=== PATIENT | female | born 1960 | race Caucasian/White ===

== ENCOUNTER 2019-12-26 13:52 | Outpatient (CLI) | payer OTHER, SELFPAY ==
--- NOTE | 2019-12-26 14:03 | MM_ITS ---
WS: [id number] SCREENING DIGITAL MAMMOGRAM WITH CAD HISTORY: SCREENING COMPARISON: 08/19/2017, 08/05/2017, 08/15/2015 Bilateral CC and MLO views submitted. Computer aided detection analyzed. Breast composition: There are scattered areas of fibroglandular density. No suspicious masses, microc alcifications or architectural distortion. MM/[place] [id number] IMPRESSION: BI-RADS: 1-Negative FOLLOW UP: 1 Year Follow-up
== END 2019-12-26 13:53 | disposition home or self-care (01) ==
LOC: RADSHAW 14:02
PROVIDERS: PCP Internal Medicine; Visit Provider Internal Medicine
DX: Z12.31 Encounter for screening mammogram for malignant neoplasm of breast (principal)
CPT/HCPCS: 77067

== ENCOUNTER → 2021-10-28 09:17 | Outpatient (BNVA) | payer OTHER, SELFPAY | PROVIDERS: PCP Internal Medicine; Visit Provider Specialist | DX: M25.552 Pain in left hip (principal); M16.12 Unilateral primary osteoarthritis, left hip | CPT/HCPCS: 73502 ==

== ENCOUNTER 2021-11-10 06:00 | Outpatient (RCR) | payer OTHER, SELFPAY | END 2021-12-03 23:59 | disposition home or self-care (01) | LOC: SPT 06:00 | PROVIDERS: PCP Internal Medicine; Referring Provider Specialist; Visit Provider Specialist | DX: M25.552 Pain in left hip (principal) | CPT/HCPCS: 97110; 97161 ==

== ENCOUNTER 2021-11-13 13:25 | Outpatient (CLI) | payer OTHER, SELFPAY ==
--- NOTE | 2021-11-13 13:45 | MR_ITS ---
WS: [id number] MRI LEFT HIP NONCONTRAST TECHNIQUE: Axial T1, axial T2 fat sat, coronal T1, coronal STIR, sagittal T2 fat sat, sagittal T1, an d sagittal T2 fat sat, of both hips. CLINICAL INFORMATION: pain COMPARISON: Radiograph October 28, 2021 FINDINGS: Moderate degenerative arthritis LEFT hip with joint space narrowing. No acute fractures. No evidence of avascular necrosis or subchondral collapse. Mild to moderate subchondral cystic change involving t he femoral head and acetabulum with minimal edema. Femoral neck and partially visualized proximal fem oral shaft appears normal. Normal visualized LEFT inferior and superior pubic ramus. Small LEFT joint effusion. Mild degenerative narrowing RIGHT hip. Normal RIGHT pubic rami. No edema in the bony pelvis or sacrum . MR/MR hip LT con* [id number] IMPRESSION: 1. Moderate degenerative arthritis LEFT hip with joint space narrowing. No acu te fractures. 2. Mild to moderate subchondral cystic change along the femoral head and aceta bulum. Minimal edema. 3. Small LEFT joint effusion. 4. Normal visualized LEFT pubic rami. 5. Mild degenerative arthritis RIGHT hip with mild joint space narrowing. 6. No other significant findings.
== END 2021-11-13 13:26 | disposition home or self-care (01) ==
PROVIDERS: PCP Internal Medicine; Visit Provider Specialist
DX: M25.559 Pain in unspecified hip (principal); M16.0 Bilateral primary osteoarthritis of hip
CPT/HCPCS: 73721

== ENCOUNTER 2022-12-21 10:10 | Outpatient (CLI) | payer OTHER, SELFPAY ==
--- NOTE | 2022-12-21 10:38 | US_ITS ---
WS: [id number] Exam: US gall bladder [id number] Date/Time of Exam: 12/21/2022 10:40 AM Reason For Exam: RUQ PAIN The gallbladder appears normal. The liver is unremarkable. The common bile duct is not dilated and me asures 2.1 mm at greatest diameter. The pancreas and right kidney appear normal. US/US gall bladder [id number] IMPRESSION: 1. Normal gallbladder ultrasound.
== END 2022-12-21 10:11 | disposition home or self-care (01) ==
PROVIDERS: PCP Internal Medicine; Visit Provider Internal Medicine
DX: R10.11 Right upper quadrant pain (principal)
CPT/HCPCS: 76705

== ENCOUNTER 2023-01-06 09:46 | Outpatient (CLI) | payer OTHER, SELFPAY ==
--- NOTE | 2023-01-06 10:07 | NM_ITS ---
WS: [id number] NUCLEAR MEDICINE HIDA SCAN WITH GALLBLADDER EJECTION FRACTION HISTORY: ABDOMINAL PAIN COMPARISON: Gallbladder ultrasound 12/21/2022 TECHNIQUE: The patient was intravenously injected with 7.5 mCi of TC99m Mebrofenin. Immediate imaging over the right upper quadrant was followed by 5 minute image and additional images for a total of 60 minutes. Normal uptake of radiotracer throughout the liver. Activity identified in the gallbladder at 60 minutes and minimally distended by 60 minutes. Activity in the proximal small bowel was seen by 10 minutes. Good washout of the radiotracer from the liver by 60 minutes. The patient then drank 8 ounces of Ensure Plus. Ejection fraction at 68 minutes was 86%. Normal GB ej ection fraction is 35-75%. Post fatty meal symptoms: None. NM/NM hepatobiliary w phar* [id number] IMPRESSION: 1. Normal HIDA scan. 2. Normal gallbladder ejection fraction. 3. No cystic or common bile duct obstruction. The gallbladder is small caliber and this does not distend well. Normal gallbladder distention was noted on 12/04.
== END 2023-01-06 09:47 | disposition home or self-care (01) ==
LOC: RAD 09:51
PROVIDERS: PCP Internal Medicine; Visit Provider Internal Medicine
DX: R10.9 Unspecified abdominal pain (principal)
CPT/HCPCS: 78227; A9537

== ENCOUNTER 2023-07-13 09:15 | Outpatient (CLI) | payer OTHER, SELFPAY ==
--- NOTE | 2023-07-13 09:20 | MM_ITS ---
WS: [id number] SCREENING DIGITAL TOMOSYNTHESIS MAMMOGRAM WITH CAD HISTORY: SCREENING COMPARISON: 12/26/2019 and 08/19/2017 and 08/05/2017 Bilateral CC and MLO with tomosynthesis views submitted. Synthetic mammography reviewed. Computer aid ed detection analyzed. Breast composition: The breasts are almost entirely fatty. No suspicious masses, microcalcifications or architectural distortion. Benign calcifications. IMPRESSION: MM/[place] [id number] BI-RADS: 2-Benign FOLLOW UP: 1 Year Follow-up
== END 2023-07-13 09:16 | disposition home or self-care (01) ==
LOC: RAD 09:16
PROVIDERS: PCP Internal Medicine; Visit Provider Internal Medicine
DX: Z12.31 Encounter for screening mammogram for malignant neoplasm of breast (principal); R92.1 Mammographic calcification found on diagnostic imaging of breast
CPT/HCPCS: 77063; 77067

== ENCOUNTER 2023-12-25 11:00 | Emergency (ER) | payer OTHER, SELFPAY ==
[2023-12-25 11:10] VITALS: BP 96/61; PULSE 99; TEMP 36.5; O2SAT 98; BMI 26.9
[2023-12-25 11:23] VITALS: BP 96/61; PULSE 85; O2SAT 97
--- NOTE | 2023-12-25 11:30 | USR_ITS ---
PROCEDURE INFORMATION: Exam: US Duplex Right Lower Extremity Veins, Limited Exam date and time: 12/25/2023 12:04 PM Age: 63 years old Clinical indication: Pain; Leg, lower; Right; Prior surgery; Surgery date: <1 month; Surgery type: RT hip replacement; Additional info: Pain in calf; Recent right hip surgery TECHNIQUE: Imaging protocol: Real-time duplex ultrasound of the right extremity with 2-D mckinley scale, color Doppler flow and spectral waveform analysis including responses to compression and other maneuvers (when performed) with image documentation. Limited exam was focused on the right lower extremity veins. COMPARISON: US transvaginal [id number] 01/21/2021 11:53 AM FINDINGS: Right deep veins: Unremarkable. The common femoral, femoral, proximal profunda femoral, popliteal, posterior tibial and peroneal veins are patent without thrombus. Normal Doppler waveforms. Normal compressibility and/or augmentation response. Superficial veins: Greater saphenous vein at the saphenofemoral junction is patent without thrombus. Soft tissues: Unremarkable. US/[place] [id number] IMPRESSION: No sonographic evidence of deep vein thrombosis.
--- NOTE | 2023-12-25 11:31 | ED_ITS ---
HPI - Extremity Problem General: Chief complaint: Extremity Problem,Nontraumatic Stated complaint: right leg pain--thinks may be blood clot Time Seen by Provider: 12/25/23 11:07 History of Present Illness: 63-year-old female reports having a righ t hip replacement on December 14. She pr esents to the emergency department because last night she started to have a throbbing in her right calf. It had subsequently improved after taking Tylenol last night but it has not returned to baseline. Seems to be slightly worse when she is laying down and then when she is standing. She has not noticed any asymmetry in her legs. No history of DVT. She is taking 81 mg of aspirin twice a day. Her incision is without any redness, pain or induration. She has not seen any cellulitis or wounds on her lower extremity beyond the incision near her hip. She denies tobacco use or use of any hormones. Associated symptoms: Deny chest pain, fever(s) or rash Review of Systems General: Reports: 10 or more systems reviewed and unremarkable except in HPI and below Const: Denies: fever(s), chills or body aches Card: Denies: chest pain, edema or syncope Resp: Denies: dyspnea or productive cough Musc: Denies: neck pain or back pain Skin/Breast: Denies: rash or erythema Neuro: Denies: headache(s), numbness in extremities, weakness in extremities or lack of coordination PFSH ED PFSH: Social History Smoking and tobacco/nicotine status: never used tobacco/nicotine Physical Exam Narrative: EXAM NARRATIVE: Well-appearing, nontoxic. Respiratory rate normal. She has an incision with a postoperative bandage over her right hip. The skin around the incision site is not red, indurated or tender. It is not warm to the touch. Her dorsalis pedis and PT pulses are 2+ in the right lower extremity. There is no grossly appreciable swelling or asymmetry in the lower extremities. Homans' sign neg ative bilaterally. Range of motion in the hips and knees within normal limits. No signs of joint swelling or warmth. Const: COMMON NORMALS: no limitations, alert and well nourished EXAM LIMITATIONS: no altered mental status HENMT: COMMON NORMALS: normocephalic, atraumatic and external ears normal HEAD & SCALP: normocephalic and atraumatic EXTERNAL EAR: Yes external ears normal MOUTH: no muffled voice Resp: COMMON NORMALS: normal respiratory effort and No use of accessory muscles Cardio: COMMON NORMALS: regular rate and regular rhythm RATE: regular rate RHYTHM: regular rhythm Neuro: COMMON NORMALS: moves all extremities, no focal motor deficits and no sensory deficits noted SENSORIUM/ORIENTATION: Yes alert SPEECH: speech normal Psych: COMMON NORMALS: mental status grossly normal, Normal thought process present, cooperative, normal affect and speech normal SPEECH: Yes normal speech THOUGHT PROCESS: Normal thought process present Skin: COMMON NORMALS: no rashes or lesions noted, turgor normal and no jaundice GENERAL SKIN EXAM: no rashes or lesions noted and turgor normal Course ED course: Preliminary read of US Venous duplex RLE: neg. Final read per radiology. Patient can be discharged with strict return precautions. Vital Signs: Vital signs: Vital Signs Temperature 97.7 F 12/25/23 11:10 Pulse Rate 85 12/25/23 11:23 Blood Pressure 96/61 12/25/23 11:23 Pulse Oximetry 97 12/25/23 11:23 Oxygen Delivery Me thod Room Air 12/25/23 11:23 MDM - Extremity (Nontraumatic) Medical Decision Making Differential diagnosis includes DVT, neuropathy, occult infection, radiculopathy, muscle spasm, other. Given the risk factors, it is reasonable to perform a right lower extremity ultrasound to rule out DVT. Her pulses are 2+ and this is not a patient I am worried about peripheral arterial disease. She does not have any known neuropathy. She does not seem to have any classic findings of complex regional pain syndrome. No signs of cellulitis or wound infection. Dispo per ultrasound findings. XR interpretation done by ED provider, pending radiology final review (US RLE preliminary results are neg--needs final radiology read.) Discharge Plan Discharge Patient Disposition: Home Clinical Impression: Encounter for medical screening examination, Acute pain of right lower extremity Condition: Stable Prescriptions: No Action alprazolam [Xanax] 0.5 mg tablet 0.5 mg PO BID fluconazole 150 mg tablet 150 mg PO Q3D Qty: 2 2RF meloxicam 15 mg tablet 15 mg PO DAILY Qty: 30 0RF Discharge Orders: Discharge ED (Routine); Ordered 12/25/23 Ordered By: Chito Bustos Referrals: Rich Olea DO [Primary Care Provider] - Patient Instructions: Pain Management Activity Restrictions/Additional Instructions: The preliminary results of your ultrasound scan did not show any deep venous thrombosis (blood clot). If you develop increased swelling, pain, redness, asymmetry compared to the left lower extremity, a temperature change compared to the opposite extremity, joint swelling, fever, chills, coughing up blood, shortness of breath, passing out or lightheadedness then return to the emergency department for further evaluation. Coding Level of Care Code ED Chip Applying Machine Tender for Criss Pastor
[2023-12-25 12:46] VITALS: BP 96/61; PULSE 85; TEMP 36.5; O2SAT 97
== END 2023-12-25 12:50 | disposition home or self-care (01) ==
PROVIDERS: Emergency Provider Emergency Medicine; PCP Internal Medicine
DX: M79.604 Pain in right leg (principal)
CPT/HCPCS: 93971; 99284

== ENCOUNTER → 2024-04-23 11:36 | Outpatient (BNVA) | payer OTHER, SELFPAY | PROVIDERS: PCP Internal Medicine; Visit Provider Nurse Practitioner | DX: R05.9 Cough, unspecified (principal) | CPT/HCPCS: 87400; 87426 ==